=== PATIENT | male | born 1935 | race Caucasian/White ===

== ENCOUNTER 2019-08-22 19:32 | Inpatient (IN) | payer MEDICARE, MEDICAID ==
[~2019-08-22] VITALS: Ht 149.9 cm; Wt 45.4 kg
--- NOTE | 2019-08-22 19:40 | NUR ---
BIBRA 60 REPORTED FALL AT HOME. PT FOUND W/ BS: 464 ON THE FIELD. 150ML OF NS IV GIVEN STRATEGIC COMMUNICATIONS SPECIALIST. PT DENIED ANY PAIN. , pt awake, alert, -sob, nad noted, vss, pending md cano
[2019-08-22 20:28] LABS: BASOPHILS % (AUTO) 0.4 % (0.0-2.0); EOSINOPHILS % (AUTO) 0.5 % (0.0-6.0); HEMATOCRIT 30 % (39-51); HEMOGLOBIN 9.7 g/dL (13.5-17.5); LYMPHOCYTES # (AUTO) 0.7 /CMM (0.8-4.8); LYMPHOCYTES % (AUTO) 10.4 % (20.0-44.0); MEAN CORPUSCULAR HGB CONC 33 g/dl (31.0-36.0); MEAN CORPUSCULAR VOLUME 87 fL (80-96); MONOCYTES # (AUTO) 0.5 /CMM (0.1-1.30); MONOCYTES % (AUTO) 6.5 % (2.0-12.0); NEUTROPHILS # (AUTO) 5.9 /CMM (1.8-8.9); NEUTROPHILS % (AUTO) 82.2 % (43.0-81.0); PLATELET COUNT (AUTO) 162 /CMM (150-450); RED BLOOD CELL COUNT(AUTO) 3.37 MIL/uL (4.5-6.0); WHITE BLOOD COUNT (AUTO) 7.2 K/uL (4.3-11.0)
[2019-08-22 20:37] LABS: CREATININE 1.2 mg/dL (0.6-1.3); POTASSIUM 4.3 mmol/L (3.5-5.1)
[2019-08-22] MEDS ORDERED: IV NS 0.9% 500 ML BAG IV ONE (21:00)
--- NOTE | 2019-08-22 21:39 | NUR ---
DR. LEE ON THE PHONE WITH AJ ANAND NP
--- NOTE | 2019-08-22 21:55 | NUR ---
BED ASSIGNMENT 322-2
[2019-08-22] MEDS ORDERED: ONDANSETRON HCL/PF 4 MG/2 ML VIAL IVP PRN (22:00)
[2019-08-22] MEDS ORDERED: MAGNESIUM HYDROXIDE 30 ML UDC PO PRN (22:00)
[2019-08-22] MEDS ORDERED: MAG HYDROX/AL HYDROX/SIMETH 30 ML UDC PO PRN (22:00)
[2019-08-22] MEDS ORDERED: Z GUARD REMEDY 2 OZ OINT TP PRN (22:00)
[2019-08-22] MEDS ORDERED: HYDROCODONE/APAP 5/325MG 1 EACH TABLET PO PRN (22:00)
[2019-08-22] MEDS ORDERED: ACETAMINOPHEN 325 MG TABLET PO PRN (22:00)
[2019-08-22] MEDS ORDERED: MEGE40TA PO (22:29)
[2019-08-22] MEDS ORDERED: SIMV-49 PO (22:29)
[2019-08-22] MEDS ORDERED: SITA1TAB6 PO (22:29)
[2019-08-22] MEDS ORDERED: METO25TA4 PO (22:29)
[2019-08-22] MEDS ORDERED: RANI150T8 PO (22:29)
[2019-08-22] MEDS ORDERED: ENTA200T PO (22:29)
[2019-08-22] MEDS ORDERED: DICY20TA11 PO (22:29)
[2019-08-22] MEDS ORDERED: CARB1TAB24 PO (22:29)
[2019-08-22] MEDS ORDERED: CARB-93 PO (22:29)
[2019-08-22] MEDS ORDERED: PRAM1.5T3 PO (22:29)
--- NOTE | 2019-08-22 22:30 | NUR ---
unable to get urine sample via straight cath, condom cath in place. endorsed to inpatient nurse
--- NOTE | 2019-08-22 22:34 | NUR ---
report given to ryan christianson for kathy pt will be tranposrted to 3rd floor
--- NOTE | 2019-08-22 22:40 | NUR ---
flight test data acquisition technician at bedside
[2019-08-23] VITALS: BP 138/53
[2019-08-23 00:10] VITALS: BP 138/53
--- NOTE | 2019-08-23 00:22 | NUR ---
pt tranported to 3rd floor
--- NOTE | 2019-08-23 00:23 | NUR ---
TELE/ELECTRIC WELDER NOTES RECEIVED PATIENT ON A GURNEY ACCOMPANIED BY CUSTOMER PROFESSIONAL ,ACCOMPANIED BY SPOUSE . PATIENT WITH PARLINSINS, HTN, CONTRACTED ON BUE AND BLE, REPORTED BED REST AND HAD A FALL WITH DX OF GLF AND DEHYDRATION. WEAK AND FRAIL LOOKING, ON ROOM AIR WITH SKIN DRY, LOSS OF MUSCLES, WITH POOR APPETITE,, MD HART ADMITING , MED RECON CONE. VITAL SIGNS CHECK, SKIN ASSESSMENT LINA WITH SACRAL WOUND AND MULITIPLE WOUND SCABS. PANAMANIAN SPEAKING BUT FAMILY ABLE TO SPEAK AND UNDERSTAND OCCITAN. BELONGINGS CHECK, PATIETN REPORTED TO HAVE DIABETES. RIGHT AC GAUGE 20 PATENT, URINE TO COLLECT.
--- NOTE | 2019-08-23 02:22 | NUR ---
TELE/RN NOTES URINE COLLECTED.
--- NOTE | 2019-08-23 02:22 | NUR ---
TELE/RN NOTES ON SINUS RYTHM, WITH DENTURES ON LOWER AND UPPER AND EYE GLASSES.
[2019-08-23] MEDS: IV NS 0.9% 1,000 ML IV PRN (02:56)
[2019-08-23 04:49] VITALS: BP 148/82
[2019-08-23 04:57] LABS: COLOR,URINE DARK YELLOW (YELLOW)
[2019-08-23 04:58] LABS: APPEARANCE,URINE Slightly Cloudy (CLEAR); BILIRUBIN,URINE NEGATIVE (NEGATIVE); KETONES,URINE TRACE (NEGATIVE); PH,URINE 5.5 (5.0-8.0); PROTEIN,URINE NEGATIVE (NEGATIVE); UGLUCOSE NEGATIVE (NEGATIVE)
[2019-08-23 04:59] LABS: LEUKOCYTE ESTERASE ,URINE NEGATIVE (NEGATIVE); NITRITE, URINE NEGATIVE (NEGATIVE); UROBILINOGEN,URINE 0.2 EU/dL (0.2)
[2019-08-23 05:05] LABS: BACTERIA,URINE Few /HPF (None Seen); BLOOD, URINE 2+ Ery/uL (NEGATIVE); RBC,URINE 81-100 /HPF (0-2); SQUAMOUS EPITHELIAL CELL,UR Rare /HPF (None Seen)
[2019-08-23 07:52] LABS: BASOPHILS % (AUTO) 0.2 % (0.0-2.0); EOSINOPHILS % (AUTO) 0.6 % (0.0-6.0); HEMATOCRIT 29 % (39-51); HEMOGLOBIN 9.8 g/dL (13.5-17.5); LYMPHOCYTES # (AUTO) 1.2 /CMM (0.8-4.8); LYMPHOCYTES % (AUTO) 16.4 % (20.0-44.0); MEAN CORPUSCULAR HGB CONC 34 g/dl (31.0-36.0); MEAN CORPUSCULAR VOLUME 87 fL (80-96); MONOCYTES # (AUTO) 0.4 /CMM (0.1-1.30); MONOCYTES % (AUTO) 5.9 % (2.0-12.0); NEUTROPHILS # (AUTO) 5.5 /CMM (1.8-8.9); NEUTROPHILS % (AUTO) 76.9 % (43.0-81.0); PLATELET COUNT (AUTO) 162 /CMM (150-450); RED BLOOD CELL COUNT(AUTO) 3.36 MIL/uL (4.5-6.0); WHITE BLOOD COUNT (AUTO) 7.1 K/uL (4.3-11.0)
[2019-08-23 08:00] VITALS: BP 128/78
--- NOTE | 2019-08-23 08:00 | NUR ---
TELE/RN AM NOTES RECEIVED PATIENT WITH PARKINSON, HTN, CONTRACTED ON BUE AND BLE, NON VERBAL,OPENS EYES. ON BED REST AND HAD A FALL WITH DX OF GLF AND DEHYDRATION. WEAK AND FRAIL LOOKING, ON ROOM AIR WITH SKIN DRY, LOSS OF MUSCLES, WITH POOR APPETITE,FOR WOUND CONSULT FOR SACRAL WOUND AND MULTIPLE WOUND SCABS. CYMRO SPEAKING BUT PT'S AT THE BEDSIDE IS ABLE TO SPEAK AND UNDERSTAND BARBADIAN. RIGHT AC GAUGE 20 PATENT WITH ONGOING IVF INFUSING WELL.CALL LIGHT PLACED WITHIN REACH.
[2019-08-23 08:21] LABS: THYROID STIMULATING HORMONE 3.454 uIU/mL (0.358-3.74)
[2019-08-23 08:26] LABS: CALCIUM, SERUM 8.4 mg/dL (8.5-10.1); CREATININE 0.9 mg/dL (0.6-1.3); MAGNESIUM 1.9 mg/dL (1.8-2.4); PHOSPHORUS 2.4 mg/dL (2.5-4.9); POTASSIUM 3.9 mmol/L (3.5-5.1)
[2019-08-23] MEDS ORDERED: CARBIDOPA/LEVODOPA 25/250 MG 1 UDTAB PO SCH (09:00)
[2019-08-23] MEDS: MEGESTROL ACETATE 40 MG TABLET PO SCH (09:07)
[2019-08-23] MEDS: FAMOTIDINE (20 MG) 20 MG TABLET PO SCH ×2 (09:07→21:11)
[2019-08-23] MEDS: DICYCLOMINE HCL 10 MG CAPSULE PO SCH (09:07)
[2019-08-23] MEDS: ENTACAPONE 200 MG TABLET PO SCH ×3 (09:07→16:53)
[2019-08-23] MEDS: PRAMIPEXOLE DI-HCL 0.25 MG TABLET PO SCH ×3 (09:08→16:53)
[2019-08-23] MEDS: METOPROLOL SUCCINATE 25 MG TAB.SR.24H PO SCH (09:09)
[2019-08-23] MEDS: PANTOPRAZOLE 40 MG TABLET.DR PO SCH (09:09)
[2019-08-23] MEDS: CARBIDOPA/LEVODOPA 25/100 MG 1 UDTAB PO SCH ×5 (09:15→21:11)
--- NOTE | 2019-08-23 10:14 | NUR ---
WOUND CARE CONSULT: PT PRESENTS WITH SACRAL STAGE 2 ULCER, PRESENT ON ADMISSION. RECOMMENDATIONS MADE FOR SKIN PROTECTION AND WOUND CARE. DISCUSSED WITH NURSING STAFF. MAE ISOFLEX LOW AIRLOSS BED TO BE PLACED. PT HAS INVOLUNTARY MOVEMENTS AT TIMES. WILL SEE PRN. BARNEY IN AGREEMENT WITH PLAN OF CARE. Addendum: 08/23/19 at 1015 by ARIA MEDEIROS WNDNU Amended: Links added.
[2019-08-23] MEDS ORDERED: K PHOS NEUTRAL 250 MG TABLET PO ONE (13:30)
[2019-08-23] MEDS: HYDROGEL DRESSING 90 GM TUBE TP PRN (13:47)
[2019-08-23] MEDS: HYDROGEL DRESSING 90 GM TUBE TP SCH (13:47)
--- NOTE | 2019-08-23 14:59 | NUR ---
Social service consult requested by Priyanka Nassar [facility] for S/PFALL/elderly with spouse as caregiver. Pt is an 83 year old male. Pt not able to engage in SW assessment due to impaired physical state and language barriers. SW spoke in person with pt family, pts Emily Olvera [[phone]] to collect collateral information. Per pts , she and her live on their own but she states that they do have a caregiver that provides support on a weekly basis, Christelle Rivera. Pts states that the caregivers schedule varies weekly and provides a variety of assistance with activities of daily living for , as well as helps her with housekeeping. Pts unable to provide SW with an approximate number of hours that the caregiver provides in-home support. SW provided information on public social service programs to help supplement the aid the pt already receives, including information on [facility] IHSS [In-Home Supportive Services; [phone]] but pts states she is currently feeling overwhelmed and does not feel like exploring the referral right now. SW also provided information on possible out-of-home placement options for pt but pts declined. SW left pts information on the IHSS program and an application in case she changes motivation in the future. No other services needed at this time. SW is available if needed.
[2019-08-23 16:00] VITALS: BP 98/56
--- NOTE | 2019-08-23 17:50 | NUR ---
NOTIFIED KWAN WILLETT NP OF PT'S BLD C/S RESULT(PRELIMINARY RESULT) OF GRAM POSITIVE COCCI WITH ORDER TO REPEAT BLD C/S X2 AND CARRIED OUT.
--- NOTE | 2019-08-23 19:30 | NUR ---
RN MS OPENING NOTES RECEIVED PATIENT IN BED AWAKE, ALERT. WITH CONSTANT SHAKINESS DUE TO PARKINSON. ONLY ANSWERS TO WITH YES/OR NO QUESTIONS. BREATHING EVEN AND UNLABORED. NO SOB NOTED. ON ROOM AIR. NO S/S OF PAIN OR DISCOMFORT. NO N/V OBSERVED. IV ON ON RIGHT FOREARM INTACT AND PATENT WITH IVF INFUSING. CONDOM CATH IN PLACE AND DRAINING. SKIN DRY AND WARM TO TOUCH. AFEBRILE. ALL OTHER NEEDS ATTENDED TO. SAFETY MEASURES IN PLACE. CALL LIGHT WITHIN REACH. WILL CONTINUE TO MONITOR.
[2019-08-23 20:00] VITALS: BP 109/53
[2019-08-23] MEDS: SIMVASTATIN 20 MG TABLET PO SCH (21:11)
[2019-08-24] MEDS: IV NS 0.9% 1,000 ML IV PRN ×2 (03:04→17:48)
[2019-08-24 06:31] LABS: BASOPHILS % (AUTO) 0.2 % (0.0-2.0); EOSINOPHILS % (AUTO) 0.8 % (0.0-6.0); HEMATOCRIT 29 % (39-51); HEMOGLOBIN 9.6 g/dL (13.5-17.5); LYMPHOCYTES # (AUTO) 1.1 /CMM (0.8-4.8); LYMPHOCYTES % (AUTO) 17.2 % (20.0-44.0); MEAN CORPUSCULAR HGB CONC 34 g/dl (31.0-36.0); MEAN CORPUSCULAR VOLUME 87 fL (80-96); MONOCYTES # (AUTO) 0.5 /CMM (0.1-1.30); MONOCYTES % (AUTO) 7.1 % (2.0-12.0); NEUTROPHILS % (AUTO) 74.7 % (43.0-81.0); PLATELET COUNT (AUTO) 148 /CMM (150-450); RED BLOOD CELL COUNT(AUTO) 3.29 MIL/uL (4.5-6.0); WHITE BLOOD COUNT (AUTO) 6.6 K/uL (4.3-11.0)
[2019-08-24] MEDS: PANTOPRAZOLE 40 MG TABLET.DR PO SCH (06:38)
[2019-08-24] MEDS: CARBIDOPA/LEVODOPA 25/100 MG 1 UDTAB PO SCH ×5 (06:38→21:09)
--- NOTE | 2019-08-24 06:56 | NUR ---
RN MS CLOSING NOTES PATIENT RESTING IN BED. IN NO DISTRESS. NO ACUTE CHANGES THROUGHOUT SHIFT. BREATHING EVEN AND UNLABORED. NO SOB NOTED. ON ROOM AIR. NO S/S OF PAIN OR DISCOMFORT. IV ON RIGHT FOREARM INTACT AND PATENT WITH IVF INFUSING. CONDOM CATH REMOVED DUE TO PATIENT MOVING TOO MUCH AND CONDOM CATH NOT STAYING IN PLACE. SKIN DRY AND WARM TO TOUCH. REMAINED AFEBRILE. ALL OTHER NEEDS ATTENDED TO. SAFETY MEASURES IN PLACE. CALL LIGHT WITHIN REACH. WILL ENDORSE TO ONCOMING NURSE FOR ABI. .
[2019-08-24 07:00] LABS: CALCIUM, SERUM 8.2 mg/dL (8.5-10.1); CREATININE 0.8 mg/dL (0.6-1.3)
[2019-08-24 08:00] VITALS: BP 175/70
--- NOTE | 2019-08-24 08:00 | NUR ---
MS RN OPENING NOTES PATIENT SLEEPING IN BED, SEMI MANUEL'S POSITION. PRESENT AT THE BEDSIDE. PATIENT ABLE TO RESPOND TO VERBAL COMMANDS AND TOUCH. IV PRESENT ON RIGHT AC, SIZE 20, WITH NS RUNNING AT 75ML/HR. IV SITE INTACT AND PATENT. NO SIGNS OF ACUTE RESPIRATORY DISTRESS OR SOB. NO COMPLAINTS OF PAIN AT THIS TIME. BED SET IN LOWEST POSITION AND LOCKED. CALL LIGHT WITHIN REACH. WILL CONTINUE TO MONITOR.
[2019-08-24] MEDS ORDERED: LORAZEPAM INJ 2 MG/ML VIAL IV ONE (09:00)
--- NOTE | 2019-08-24 09:07 | NUR ---
MS RN NOTES PATIENT SENT DOWN FOR CT.
[2019-08-24] MEDS: ENTACAPONE 200 MG TABLET PO SCH ×3 (09:34→17:22)
[2019-08-24] MEDS: DICYCLOMINE HCL 10 MG CAPSULE PO SCH (09:34)
[2019-08-24] MEDS: PRAMIPEXOLE DI-HCL 0.25 MG TABLET PO SCH ×3 (09:34→17:22)
[2019-08-24] MEDS: METOPROLOL SUCCINATE 25 MG TAB.SR.24H PO SCH (09:35)
[2019-08-24] MEDS: FAMOTIDINE (20 MG) 20 MG TABLET PO SCH ×2 (09:35→21:09)
[2019-08-24] MEDS: MEGESTROL ACETATE 40 MG TABLET PO SCH (09:35)
[2019-08-24] MEDS: HYDROGEL DRESSING 90 GM TUBE TP SCH (10:02)
[2019-08-24] MEDS: ENSURE ENLIVE CHOC 237 ML CAN PO SCH ×2 (13:31→17:20)
[2019-08-24 16:00] VITALS: BP 147/77
--- NOTE | 2019-08-24 18:03 | NUR ---
MS RN CLOSING NOTES PATIENT EATING DINNER IN BED, ASSISTED BY . NEW IV INSERTED ON LEFT AC, SIZE 22, WITH NS RUNNING AT 75 ML/HR. PATIENT ON ROOM AIR WITH NO S/S OF ACUTE RESPIRATORY DISTRESS OR SOB. SACRAL WOUND CLEANED, HYDROGEL & MEPILEX APPLIED TO PROTECT SKIN. BED SET IN LOWEST POSITION & LOCKED. CALL LIGHT WITHIN REACH. WILL ENDORSE TO COMMUNICATIONS ADVISOR NURSE TO FOLLOW PLAN OF CARE.
--- NOTE | 2019-08-24 19:22 | NUR ---
CHANGE OF SHIFT REPORT Patient in bed, awake. A/O to self only. BUE rigid,tremors Hx of Parkinsons. IVF infusing, tolerating RA, breathing even and non labored. Fall, aspiration, skin precaution maintained. at bedside.
[2019-08-24 20:45] VITALS: BP 112/49
[2019-08-24] MEDS: SIMVASTATIN 20 MG TABLET PO SCH (21:09)
[2019-08-25] MEDS: IV NS 0.9% 1,000 ML IV PRN ×2 (06:21→23:09)
--- NOTE | 2019-08-25 06:35 | NUR ---
END OF SHIFT REPORT Patient in bed, A/O x1.Tolerating RA. IVF infusing, no acute events overnight. OFF antibiotic, afebrile overnight. Reposition every 2 hours, wound care done. Hourly rounds, fall/aspiration/skin precaution maintained.
[2019-08-25] MEDS: CARBIDOPA/LEVODOPA 25/100 MG 1 UDTAB PO SCH ×5 (06:38→21:18)
[2019-08-25 06:45] LABS: CALCIUM, SERUM 8.4 mg/dL (8.5-10.1); CREATININE 0.9 mg/dL (0.6-1.3); POTASSIUM 4.5 mmol/L (3.5-5.1)
[2019-08-25 06:56] LABS: BASOPHILS % (AUTO) 0.2 % (0.0-2.0); EOSINOPHILS % (AUTO) 0.2 % (0.0-6.0); HEMATOCRIT 30 % (39-51); HEMOGLOBIN 9.8 g/dL (13.5-17.5); LYMPHOCYTES # (AUTO) 0.9 /CMM (0.8-4.8); LYMPHOCYTES % (AUTO) 11.8 % (20.0-44.0); MEAN CORPUSCULAR HGB CONC 33 g/dl (31.0-36.0); MEAN CORPUSCULAR VOLUME 87 fL (80-96); MONOCYTES # (AUTO) 0.4 /CMM (0.1-1.30); MONOCYTES % (AUTO) 5.4 % (2.0-12.0); NEUTROPHILS # (AUTO) 6.1 /CMM (1.8-8.9); NEUTROPHILS % (AUTO) 82.4 % (43.0-81.0); PLATELET COUNT (AUTO) 159 /CMM (150-450); WHITE BLOOD COUNT (AUTO) 7.5 K/uL (4.3-11.0)
[2019-08-25 08:00] VITALS: BP 152/90
--- NOTE | 2019-08-25 08:00 | NUR ---
m/s honing machine operator tool: initial assessment received pt in bed awake, a/ox1-2; bahraini speaking. able to make simple needs known. at bedside and to translate. no c/o pain or any discomfort. continue on ivf, infusing well. no distress noted. call light within reach. will monitor.
[2019-08-25] MEDS: MEGESTROL ACETATE 40 MG TABLET PO SCH (08:10)
[2019-08-25] MEDS: PANTOPRAZOLE 40 MG TABLET.DR PO SCH (08:10)
[2019-08-25] MEDS: METOPROLOL SUCCINATE 25 MG TAB.SR.24H PO SCH (08:10)
[2019-08-25] MEDS: DICYCLOMINE HCL 10 MG CAPSULE PO SCH (08:10)
[2019-08-25] MEDS: PRAMIPEXOLE DI-HCL 0.25 MG TABLET PO SCH ×3 (08:11→17:24)
[2019-08-25] MEDS: ENTACAPONE 200 MG TABLET PO SCH ×3 (08:11→17:24)
[2019-08-25] MEDS: FAMOTIDINE (20 MG) 20 MG TABLET PO SCH ×2 (08:11→21:18)
[2019-08-25] MEDS: ENSURE ENLIVE CHOC 237 ML CAN PO SCH ×3 (08:13→17:00)
--- NOTE | 2019-08-25 09:56 | NUR ---
WOUND CARE CONSULT: PT SEEN FOR REDNESS/RASH TO LEFT GROINFOLD. RECOMMENDATIONS MADE FOR SKIN CARE AND PROTECTION. DISCUSSED WITH NURSING STAFF. WILL SEE PRN. BARNEY IN AGREEMENT WITH PLAN OF CARE. Addendum: 08/25/19 at 0956 by ARIA MEDERIOS WNDNU Amended: Links added.
--- NOTE | 2019-08-25 10:11 | NUR ---
m/s men's custom hair piece consultant: notes pt given 1 norco 5/325 prior to p.t. tx. pt refused to have alcala catheter, stated, "i'm not ready yet to go to the bathroom." pt just stood up, but did not ambulate per. p.t. instructed to call for assistance.
[2019-08-25] MEDS: HYDROGEL DRESSING 90 GM TUBE TP SCH (11:03)
--- NOTE | 2019-08-25 11:11 | NUR ---
m/s outreach clinician: notes pt resting comfortable. voiced no discomfort. will continue to monitor.
--- NOTE | 2019-08-25 12:50 | NUR ---
m/s mounter automatic: notes received new lab orders from della bustillo ([facility]). orders acknowledged.
[2019-08-25] MEDS ORDERED: FEE PK DOSING 1 MIN EA MC ONE (13:36)
[2019-08-25] MEDS ORDERED: VANCOMYCIN 0.75 GM in IV D5W 250 ML IV ONE (14:00)
--- NOTE | 2019-08-25 14:00 | NUR ---
m/s biology tutor: notes private caregiver at bedside with . pt appears comfortable. will continue to monitor.
[2019-08-25 16:00] VITALS: BP 125/71
--- NOTE | 2019-08-25 16:00 | NUR ---
m/s inside sales trainer: notes and caregiver left at this time. pt resting comfortable. no distress noted. will continue to monitor.
[2019-08-25] MEDS: CLOTRIMAZOLE 1% 15 GM TUBE TP SCH (17:23)
--- NOTE | 2019-08-25 18:15 | NUR ---
m/s application counselor: notes in bed resting comfortable. no distress noted. needs attended. call light within reach. will continue to monitor.
--- NOTE | 2019-08-25 19:00 | NUR ---
m/s silk spooler: notes report given to karishma (rn) for continuity of care.
[2019-08-25 20:00] VITALS: BP 149/102
[2019-08-25 20:30] VITALS: BP 164/106
[2019-08-25] MEDS: SIMVASTATIN 20 MG TABLET PO SCH (21:18)
[2019-08-25 21:30] VITALS: BP 139/85
--- NOTE | 2019-08-25 21:39 | NUR ---
RN NOTES PATIENT ALERT AND ORIENTED X2, STABLE ON ROOM AIR, SPO2 98%, NOT IN APPARENT DISTRESS, DBP ELEVATED TAKEN MULTIPLE TIMES, AND TAKEN LEFT AND RIGHT ARMS, NOTIFIED PAINTER AND DECORATOR APPRENTICE AJ, NO NEW ORDER, MONITOR PATIENT. TAKEN BP AGAIN 139/85 HR 85, KEPT SAFE, WILL CONTINUE TO MONITOR.
--- NOTE | 2019-08-25 23:04 | NUR ---
REPORT RECIEVED FROM CARLOS DE LA ROSA. PATIENT SEEN IN BED RESTING WITH EYES CLOSED IN O S/S OF APARENT DISTRESS. RESP EVEN AND UNLABORED. IV INFUSING TO DAKOTA #22 WITH NO S/S OF INFILTRATION REDNESS OR EDEMA. Addendum: 08/25/19 at 2306 by CARMEL CULVER RN WILL CON TO MONITOR.
--- NOTE | 2019-08-25 23:35 | NUR ---
RM IS READY IN MS2. REPORT GIVEN BACK TO CARLOS DE LA ROSA. PATIENT TO BE TRANSPORTED TO MS2 TO NEW ROOM. 205
--- NOTE | 2019-08-25 23:56 | NUR ---
RN NOTES TRANSFERRED PATIENT TO ROOM 205-2 IN GOOD AND STABLE CONDITION, ALL BELONGINGS IN ROOM INCLUDING DENTURES
[2019-08-26] MEDS: VANCOMYCIN 500 MG in IV D5W 100 ML IV SCH ×2 (02:10→14:17)
[2019-08-26 06:34] LABS: BASOPHILS % (AUTO) 0.1 % (0.0-2.0); EOSINOPHILS % (AUTO) 1.1 % (0.0-6.0); HEMATOCRIT 31 % (39-51); HEMOGLOBIN 10.2 g/dL (13.5-17.5); LYMPHOCYTES % (AUTO) 18.3 % (20.0-44.0); MEAN CORPUSCULAR HGB CONC 33 g/dl (31.0-36.0); MEAN CORPUSCULAR VOLUME 87 fL (80-96); MONOCYTES # (AUTO) 0.4 /CMM (0.1-1.30); MONOCYTES % (AUTO) 7.3 % (2.0-12.0); NEUTROPHILS # (AUTO) 4.1 /CMM (1.8-8.9); NEUTROPHILS % (AUTO) 73.2 % (43.0-81.0); PLATELET COUNT (AUTO) 145 /CMM (150-450); WHITE BLOOD COUNT (AUTO) 5.6 K/uL (4.3-11.0)
--- NOTE | 2019-08-26 06:42 | NUR ---
RN NOTES PATIENT ALERT AND AWAKE, ROOM AIR, NO DISTRESS, NOT IN APPARENT PAIN, NO RESTLESSNESS, GIVEN VANCOMYCIN, DAKOTA PERIPHERAL IV DISLODGED, RE-STARTED IV LINE TO RIGHT HAND, LEAKING, WILL NEED MIDLINE, PATIENT IS HARD STICK, ON NS AT 75 ML/HR, VANCOMYCIN IVPB, WOUND CARE PERFORMED.
[2019-08-26] MEDS: CARBIDOPA/LEVODOPA 25/100 MG 1 UDTAB PO SCH ×5 (07:04→21:01)
[2019-08-26 07:29] LABS: CALCIUM, SERUM 8.1 mg/dL (8.5-10.1); CREATININE 0.8 mg/dL (0.6-1.3); POTASSIUM 4.3 mmol/L (3.5-5.1)
--- NOTE | 2019-08-26 07:43 | NUR ---
MS RN OPENING NOTE PATIENT IN BED SLEEPING, RESTING COMFORTABLY. PATIENT IN NO ACUTE DISTRESS. NO SOB NOTED. PATIENT BREATHING IS EVEN AND UNLABORED. PATIENT BED ALARM IS ON. SAFETY PRECAUTIONS IN PLACE. PATIENT BED IS LOCKED AND IN LOWEST POSITION. CALL LIGHT WITHIN REACH. WILL CONTINUE TO MONITOR.
[2019-08-26 08:00] VITALS: BP 133/90
[2019-08-26] MEDS: ENSURE ENLIVE CHOC 237 ML CAN PO SCH ×3 (08:26→16:14)
[2019-08-26] MEDS: CLOTRIMAZOLE 1% 15 GM TUBE TP SCH ×2 (08:26→16:15)
[2019-08-26] MEDS: FAMOTIDINE (20 MG) 20 MG TABLET PO SCH ×2 (08:26→21:01)
[2019-08-26] MEDS: HYDROGEL DRESSING 90 GM TUBE TP SCH (08:27)
[2019-08-26] MEDS: MEGESTROL ACETATE 40 MG TABLET PO SCH (08:28)
[2019-08-26] MEDS: DICYCLOMINE HCL 10 MG CAPSULE PO SCH (08:28)
[2019-08-26] MEDS: METOPROLOL SUCCINATE 25 MG TAB.SR.24H PO SCH (08:28)
[2019-08-26] MEDS: PANTOPRAZOLE 40 MG TABLET.DR PO SCH (09:04)
[2019-08-26] MEDS: ENTACAPONE 200 MG TABLET PO SCH ×3 (10:24→16:14)
[2019-08-26] MEDS: PRAMIPEXOLE DI-HCL 0.25 MG TABLET PO SCH ×3 (10:25→16:14)
[2019-08-26 16:00] VITALS: BP 128/67
[2019-08-26] MEDS: IV NS 0.9% 1,000 ML IV PRN (16:14)
--- NOTE | 2019-08-26 18:20 | NUR ---
MS RN CLOSING NOTE PATIENT IN BED RESTING COMFORTABLY. PATIENT IN NO ACUTE DISTRESS. NO SOB NOTED. PATIENT BREATHING IS EVEN AND UNLABORED. PATIENT HOB IS ELEVATED. PATIENT NEEDS AND CONCERNS ADDRESSED. PATIENT TURNED AND REPOSITION Q2H. PATIENT EXTREMITIES OFFLOADED ON PILLOWS. PATIENT KEPT CLEAN, DRY, AND COMFORTABLE THROUGHOUT SHIFT. WOUND CARE TREATMENT PROVIDED ORDERED. BED ALARM IS ON. PATIENT BED IS LOCKED AND IN LOWEST POSITION. CALL LIGHT WITHIN REACH. WILL ENDORSE CARE TO PM SHIFT FOR ABI.
--- NOTE | 2019-08-26 19:10 | NUR ---
RN OPENING NOTES RECEIVED PATIENT AWAKE IN BED. ALERT AND ORIENTED X2. ON ROOM AIR, TOLERATING WELL. NO RESPIRATORY DISTRESS. NO SHORTNESS OF BREATH NOTED. PERIPHERAL IV INFUSING, NO S/S OF INFECTION/INFILTRATION, PATENT/INTACT. NO SIGNS OF FACIAL GRIMACING INDICATING PAIN/DISCOMFORT AT THIS TIME. SAFETY PRECAUTIONS IMPLEMENTED; CALL LIGHT WITHIN REACH, BED LOCKED, BED LOWEST POSITION, BILATERAL UPPER SIDE RAILS UP. WILL CONTINUE TO MONITOR.
--- NOTE | 2019-08-26 19:35 | NUR ---
RN NOTES 1935 ID FUSE ASSEMBLER, EBONI. CAME TO CHECK PATIENT. STATES PATIENT WILL HAVE NEW ANTIBIOTIC. ORDERS WILL BE INPUTTED.
[2019-08-26 20:00] VITALS: BP 98/52
[2019-08-26 20:10] VITALS: BP 98/52
[2019-08-26] MEDS: SIMVASTATIN 20 MG TABLET PO SCH (21:01)
[2019-08-27] MEDS ORDERED: CEFAZOLIN 1 GM ONE ×2 (00:18→00:20)
[2019-08-27] MEDS: CEFAZOLIN 2 GM in IV NS 0.9% 100 ML IV SCH ×3 (04:43→21:45)
[2019-08-27] MEDS: IV NS 0.9% 1,000 ML IV PRN (04:51)
[2019-08-27] MEDS: CARBIDOPA/LEVODOPA 25/100 MG 1 UDTAB PO SCH ×5 (06:41→21:30)
--- NOTE | 2019-08-27 06:42 | NUR ---
RN CLOSING NOTES PATIENT IS ASLEEP IN BED, EASILY AROUSABLE TO NAME. ON ROOM AIR, TOLERATING WELL, NO DISTRESS, NO SHORTNESS OF BREATH NOTED. NO SIGNS OF FACIAL GRIMACING INDICATING PAIN OR DISCOMFORT AT THIS TIME. WOUND CARE PERFORMED. ALL NEEDS MET AT THIS TIME. PATIENT TURNED AND REPOSITIONED Q2H, EXTREMITIES OFFLOADED ON PILLOWS. PATIENT KEPT CLEAN, DRY, AND COMFORTABLE. SAFETY PRECAUTIONS IMPLEMENTED; CALL LIGHT WITHIN REACH, BED LOCKED, BED LOWEST POSITION, BILATERAL UPPER SIDE RAILS UP. WILL CONTINUE TO MONITOR AND WILL ENDORSE TO DAYSMDFT NURSE FOR CONTINUITY OF CARE.
[2019-08-27 08:00] VITALS: BP 110/51
[2019-08-27] MEDS: METOPROLOL SUCCINATE 25 MG TAB.SR.24H PO SCH (08:08)
[2019-08-27] MEDS: FAMOTIDINE (20 MG) 20 MG TABLET PO SCH ×2 (08:13→21:29)
[2019-08-27] MEDS: MEGESTROL ACETATE 40 MG TABLET PO SCH (08:13)
[2019-08-27] MEDS: PANTOPRAZOLE 40 MG TABLET.DR PO SCH (08:13)
[2019-08-27] MEDS: PRAMIPEXOLE DI-HCL 0.25 MG TABLET PO SCH ×3 (08:13→16:17)
[2019-08-27] MEDS: ENSURE ENLIVE CHOC 237 ML CAN PO SCH ×3 (08:13→16:17)
[2019-08-27] MEDS: DICYCLOMINE HCL 10 MG CAPSULE PO SCH (08:13)
[2019-08-27] MEDS: ENTACAPONE 200 MG TABLET PO SCH ×3 (08:13→16:17)
[2019-08-27] MEDS: CLOTRIMAZOLE 1% 15 GM TUBE TP SCH ×2 (08:14→16:17)
[2019-08-27] MEDS: HYDROGEL DRESSING 90 GM TUBE TP SCH (08:14)
[2019-08-27 08:27] LABS: BASOPHILS % (AUTO) 0.3 % (0.0-2.0); EOSINOPHILS % (AUTO) 0.9 % (0.0-6.0); HEMATOCRIT 27 % (39-51); HEMOGLOBIN 8.9 g/dL (13.5-17.5); LYMPHOCYTES # (AUTO) 0.7 /CMM (0.8-4.8); LYMPHOCYTES % (AUTO) 12.9 % (20.0-44.0); MEAN CORPUSCULAR HGB CONC 33 g/dl (31.0-36.0); MEAN CORPUSCULAR VOLUME 87 fL (80-96); MONOCYTES # (AUTO) 0.4 /CMM (0.1-1.30); MONOCYTES % (AUTO) 8.2 % (2.0-12.0); NEUTROPHILS % (AUTO) 77.7 % (43.0-81.0); PLATELET COUNT (AUTO) 155 /CMM (150-450); RED BLOOD CELL COUNT(AUTO) 3.08 MIL/uL (4.5-6.0); WHITE BLOOD COUNT (AUTO) 5.2 K/uL (4.3-11.0)
[2019-08-27 08:31] LABS: CREATININE 0.9 mg/dL (0.6-1.3); POTASSIUM 3.7 mmol/L (3.5-5.1)
[2019-08-27 16:00] VITALS: BP 139/72
[2019-08-27 20:00] VITALS: BP 130/71
[2019-08-27 21:22] VITALS: BP 130/71
[2019-08-27] MEDS: SIMVASTATIN 20 MG TABLET PO SCH (21:30)
[2019-08-28] MEDS: IV NS 0.9% 1,000 ML IV PRN (02:08)
[2019-08-28] MEDS: CEFAZOLIN 2 GM in IV NS 0.9% 100 ML IV SCH (05:05)
[2019-08-28] MEDS: CARBIDOPA/LEVODOPA 25/100 MG 1 UDTAB PO SCH ×2 (06:32→11:45)
--- NOTE | 2019-08-28 06:40 | NUR ---
RN CLOSING NOTES PATIENT IS ASLEEP IN BED, EASILY AROUSABLE TO NAME. ON ROOM AIR, TOLERATING WELL, NO DISTRESS, NO SHORTNESS OF BREATH NOTED. NO SIGNS OF FACIAL GRIMACING INDICATING PAIN OR DISCOMFORT AT THIS TIME. WOUND CARE PERFORMED. ALL NEEDS MET AT THIS TIME. PATIENT TURNED AND REPOSITIONED Q2H, EXTREMITIES OFFLOADED ON PILLOWS. PATIENT KEPT CLEAN, DRY, AND COMFORTABLE. SAFETY PRECAUTIONS IMPLEMENTED; CALL LIGHT WITHIN REACH, BED LOCKED, BED LOWEST POSITION, BILATERAL UPPER SIDE RAILS UP. WILL CONTINUE TO MONITOR AND WILL ENDORSE TO DAYSVTFT NURSE FOR CONTINUITY OF CARE.
[2019-08-28 06:48] LABS: BASOPHILS % (AUTO) 0.2 % (0.0-2.0); EOSINOPHILS % (AUTO) 1.7 % (0.0-6.0); HEMATOCRIT 28 % (39-51); HEMOGLOBIN 9.4 g/dL (13.5-17.5); LYMPHOCYTES # (AUTO) 0.8 /CMM (0.8-4.8); LYMPHOCYTES % (AUTO) 14.5 % (20.0-44.0); MEAN CORPUSCULAR HGB CONC 34 g/dl (31.0-36.0); MEAN CORPUSCULAR VOLUME 86 fL (80-96); MONOCYTES # (AUTO) 0.4 /CMM (0.1-1.30); MONOCYTES % (AUTO) 6.1 % (2.0-12.0); NEUTROPHILS # (AUTO) 4.5 /CMM (1.8-8.9); NEUTROPHILS % (AUTO) 77.5 % (43.0-81.0); PLATELET COUNT (AUTO) 147 /CMM (150-450); RED BLOOD CELL COUNT(AUTO) 3.19 MIL/uL (4.5-6.0); WHITE BLOOD COUNT (AUTO) 5.8 K/uL (4.3-11.0)
[2019-08-28 06:58] LABS: CALCIUM, SERUM 8.1 mg/dL (8.5-10.1); CREATININE 0.7 mg/dL (0.6-1.3); POTASSIUM 4.3 mmol/L (3.5-5.1)
--- NOTE | 2019-08-28 07:21 | NUR ---
RN OPENING NOTES Patient received on room air, no sob noted, patient remains a/o x1-2 at this time and is easily awakened. L upper arm 22 gauge NS @ 75 ml per hour. Pureed diet at this time. Bed at the lowest setting, call light within reach, side rails up x2.
[2019-08-28 08:00] VITALS: BP 148/71
[2019-08-28] MEDS: DICYCLOMINE HCL 10 MG CAPSULE PO SCH (08:26)
[2019-08-28] MEDS: FAMOTIDINE (20 MG) 20 MG TABLET PO SCH (08:26)
[2019-08-28] MEDS: PRAMIPEXOLE DI-HCL 0.25 MG TABLET PO SCH (08:26)
[2019-08-28] MEDS: MEGESTROL ACETATE 40 MG TABLET PO SCH (08:26)
[2019-08-28 08:27] VITALS: BP 148/71
[2019-08-28] MEDS: PANTOPRAZOLE 40 MG TABLET.DR PO SCH (08:27)
[2019-08-28] MEDS: METOPROLOL SUCCINATE 25 MG TAB.SR.24H PO SCH (08:27)
[2019-08-28] MEDS: CLOTRIMAZOLE 1% 15 GM TUBE TP SCH (08:32)
[2019-08-28] MEDS: HYDROGEL DRESSING 90 GM TUBE TP PRN (08:33)
[2019-08-28] MEDS: ENSURE ENLIVE CHOC 237 ML CAN PO SCH ×2 (08:33→11:48)
[2019-08-28] MEDS: HYDROGEL DRESSING 90 GM TUBE TP SCH (08:33)
[2019-08-28] MEDS: ENTACAPONE 200 MG TABLET PO SCH (08:34)
[2019-08-28] MEDS ORDERED: CEFA2PLA9 IV (09:34)
[2019-08-28] MEDS ORDERED: CLOT15CR35 TP (09:34)
--- NOTE | 2019-08-28 12:13 | NUR ---
RN NOTES KISHORE midline 18 placed at this time. No bleeding noted.
--- NOTE | 2019-08-28 13:04 | NUR ---
DEVELOPMENT MANAGER NOTES Patient discharged on room air, no sob noted, patient shows no s/s of pain at this time. Patient with a KISHORE midline 18 placed. Patients paperwork with them and has no further questions at this time. Photos were not taken because they were recently taken less than 24 hours ago. Photos in chart at this time. Patients family wanted to be the one to take him home and refused ambulance. IV line removed and kept the KISHORE midline at this time.
== END 2019-08-28 12:30 | disposition home health service (06) | DRG 640 ==
LOC: ER 19:38 → EDBD 19:38 → MED 22:07 → TELE 08-23 01:19 → MED 08-23 08:35 → MEDSG2 08-25 23:40
PROVIDERS: ADMIT Registered Nurse; ATTEND Nurse Practitioner Acute Care
PROC: 05H533Z Insertion of Infusion Device into Right Subclavian Vein, Percutaneous Approach (ICD-10-PCS; principal; 2019-08-28)
DX: E86.0 Dehydration (principal); N17.0 Acute kidney failure with tubular necrosis; R53.2 Functional quadriplegia; J98.11 Atelectasis; G93.40 Encephalopathy, unspecified; E46 Unspecified protein-calorie malnutrition; G20 Parkinson's disease; E78.5 Hyperlipidemia, unspecified; E11.65 Type 2 diabetes mellitus with hyperglycemia; D63.8 Anemia in other chronic diseases classified elsewhere; I10 Essential (primary) hypertension; R53.1 Weakness; F02.80 Dementia in other diseases classified elsewhere, unspecified severity, without behavioral disturbance, psychotic disturbance, mood disturbance, and anxiety; K44.9 Diaphragmatic hernia without obstruction or gangrene; B35.6 Tinea cruris; Z68.20 Body mass index [BMI] 20.0-20.9, adult; R29.6 Repeated falls
CPT/HCPCS: 36415; 70450-TC; 71045-TC; 71250-TC; 80048-TC; 80061-TC; 80202-TC; 81000-TC; 82962-TC; 83605-TC; 83735-TC; 84100-TC; 84443-TC; 85025-TC; 87040-TC; 87081-TC; 87086-TC; 93307-TC; 93880-TC; 97530-TC; A4349; A6248; G0378; J0690; J2060; J3370; J7030; J7060